=== PATIENT | female | born 1965 | race Caucasian/White ===

== ENCOUNTER 2024-10-30 17:08 | Emergency (ER) | payer MEDICAID ==
[~2024-10-30] VITALS: Ht 182.9 cm; Wt 110.0 kg
[2024-10-30 17:17] VITALS: BP 144/92; PULSE 95; RESP 16; TEMP 36.8; O2SAT 99
[2024-10-30 17:55] LABS: BASOPHILS % 0.6 % (0.0-2.0); EOSINOPHILS % 3.3 % (0.0-5.0); HEMATOCRIT. 40.9 % (36.0-48.0); HEMOGLOBIN. 13.7 g/dL (12.0-16.0); LYMPHOCYTES % 30.4 % (20.0-50.0); MEAN CORPUSCULAR HEMOGLOBIN 29.1 pg (28.0-32.0); MEAN CORPUSCULAR HGB CONC 33.6 g/dL (31.0-37.0); MEAN CORPUSCULAR VOLUME 86.7 fL (81.0-99.0); MEAN PLATELET VOLUME 9.3 fl (7.4-10.4); NEUTROPHILS % 56.7 % (40.0-76.0); PLATELET 154 x1000/uL (130-400); RED BLOOD CELL COUNT 4.71 mill/uL (4.2-5.4); RED CELL DISTRIBUTION WIDTH 15.6 % (11.6-14.6); WHITE BLOOD COUNT 7.2 x1000/uL (4.5-11.0)
[2024-10-30 18:00] LABS: CHLORIDE 106 mEq/L (98-107); POTASSIUM 3.1 mEq/L (3.5-5.1); SODIUM 145 mEq/L (136-145)
[2024-10-30 18:01] LABS: CARBON DIOXIDE 29 mEq/L (21-32)
[2024-10-30 18:02] LABS: CALCIUM 8.5 mg/dL (8.7-10.4)
[2024-10-30 18:06] LABS: GLUCOSE 93 mg/dL (70-105)
[2024-10-30 18:07] LABS: ETHANOL BLOOD 275 mg/dL (<10); UREA NITROGEN BLOOD 12 mg/dL (9-23)
[2024-10-30 18:08] LABS: ALANINE AMINOTRANSFERASE 25 IU/L (10-49); ALBUMIN 4.2 g/dL (3.2-4.8); ASPARTATE AMINOTRANSFERASE 29 IU/L (<34); BILIRUBIN DIRECT 0.2 mg/dL (<=3.0)
[2024-10-30 18:09] LABS: BILIRUBIN TOTAL 0.6 mg/dL (0.1-1.0); PROTEIN TOTAL 6.6 g/dL (6.0-8.3)
[2024-10-30] MEDS: POTASSIUM CHLORIDE 20MEQ/PACKET PO ONE (19:58)
[2024-10-30] MEDS: ACETAMINOPHEN 325MG TABLET PO ONE (19:58)
[2024-10-30] MEDS: CHLORDIAZEPOXIDE 25MG CAPSULE PO ONE (19:58)
== END 2024-10-30 21:14 | disposition home or self-care (01) ==
LOC: ER 17:08
DX: R10.9 Unspecified abdominal pain (principal); E87.6 Hypokalemia; F10.129 Alcohol abuse with intoxication, unspecified; Z86.73 Personal history of transient ischemic attack (TIA), and cerebral infarction without residual deficits; I25.2 Old myocardial infarction; Y90.9 Presence of alcohol in blood, level not specified
CPT/HCPCS: 36415; 80048; 80076; 80320; 85025; 99284; G0480